=== PATIENT | female | born 1955 | race Caucasian/White ===

== ENCOUNTER → 2016-06-20 | Outpatient (CLI) | payer MEDICAID, OTHER ==
[~2016-06-20] MED LIST: ADVI200C5 PO; MOBI15TA PO; PERC10TA27 PO; VENTAER INH
--- NOTE | 2016-06-20 10:34 | RADRPT ---
EXAM DATE/TIME: 06/20/2016 10:22 [facility] COMPARISON: No previous studies available for comparison. INDICATIONS : Evaluate for communicable disease, pneumonia, and pneumothorax. Bunionectomy right foot MEDICAL HISTORY : None. SURGICAL HISTORY : None. ENCOUNTER: Initial ACUITY: 1 day PAIN SCORE: 0/10 LOCATION: Bilateral chest FINDINGS: PA and lateral views of the chest demonstrate the lungs to be symmetrically aerated without evidence of mass, infiltrate or effusion. The cardiomediastinal contours are unremarkable. Osseous structure s are intact. CONCLUSION: No acute disease. Michael Paul MD on June 20, 2016 at 10:30 Board Certified Radiologist. This report was verified electronically.
[2016-06-20 11:47] LABS: AUTOMATED NEUTROPHIL # 3.9 TH/MM3 (1.8-7.7); BASOPHIL % 0.6 % (0.0-2.0); EOSINOPHIL # 0.4 TH/MM3 (0-0.4); EOSINOPHIL % 6.4 % (0.0-4.0); HEMATOCRIT 41.7 % (35.0-46.0); HEMO FLAGS DIFF FINAL; LYMPH % 19.3 % (9.0-44.0); LYMPHOCYTE # 1.1 TH/MM3 (1.0-4.8); MEAN CELL VOLUME 83.3 FL (80.0-100.0); MEAN CORPUSCULAR HEMOGLOBIN 26.8 PG (27.0-34.0); MEAN CORPUSCULAR HGB CONC 32.2 % (32.0-36.0); MONO % 5.4 % (0.0-8.0); NEUT % 68.3 % (16.0-70.0); PLATELET COUNT 177 TH/MM3 (150-450); RED BLOOD COUNT 5.01 MIL/MM3 (4.00-5.30); RED CELL DISTRIBUTION WIDTH 12.5 % (11.6-17.2); WHITE BLOOD COUNT 5.8 TH/MM3 (4.0-11.0)
[2016-06-20 11:56] LABS: INTERNATIONAL NORMALIZED RATIO 0.9 RATIO; PROTHROMBIN TIME - PATIENT 10.4 SEC (9.8-11.6)
[2016-06-20 12:27] LABS: ALKALINE PHOSPHATASE 129 U/L (45-117); ALT (GPT) 23 U/L (10-53); ANION GAP 8 MEQ/L (5-15); AST (GOT) 20 U/L (15-37); BICARBONATE 29.5 MEQ/L (21.0-32.0); BLOOD UREA NITROGEN 11 MG/DL (7-18); CHLORIDE 104 MEQ/L (98-107); GLOMERULAR FILTRATION RATE 86 ML/MIN (>89); GLUCOSE,FASTING 83 MG/DL (74-99); POTASSIUM 4.4 MEQ/L (3.5-5.1); SODIUM (NA) 141 MEQ/L (136-145); TOTAL BILIRUBIN ADULT 0.3 MG/DL (0.2-1.0)
--- NOTE | 2016-06-20 16:38 | EKG ---
Date Performed: 06/20/2016 Time Performed: 09:50:28 PTAGE: 60 years EKG: Sinus rhythm WITH FIRST DEGREE AV BLOCK ABNORMAL ECG NO PREVIOUS TRACING DOCTOR: Stoney Alberto Interpretating Date/Time 06/20/2016 16:37:22
== END ==
LOC: CPRE 09:31
PROVIDERS: ATTEND Podiatrist Primary Podiatric Medicine
DX: Z01.810 Encounter for preprocedural cardiovascular examination (principal); M20.10 Hallux valgus (acquired), unspecified foot; R94.31 Abnormal electrocardiogram [ECG] [EKG]; Z01.818 Encounter for other preprocedural examination; Z01.812 Encounter for preprocedural laboratory examination
CPT/HCPCS: 36415; 71020; 80053; 85025; 85610; 93005

== ENCOUNTER → 2016-06-24 | Day surgery (SDC) | payer MEDICAID ==
[~2016-06-24] MED LIST changes: +*morphine SULFATE 8 MG/ML PERIprocedure ONLY ONE; +ACETAMINOPHEN 1000 MG/100 ML VIAL IV ONE; +BUPIVACAINE HCL PF 0.5% 30 ML VIAL ONE; +CHLORHEXIDINE GLUCONATE 2 % 1 PACK (2 CLOTHS) TOPICAL PRN; +DEXAMETHASONE SOD PHOS 4 MG/ML VIAL ONE; +DO NOT ADM ANY ANTICOAGULANT DRUGS PRN; +FAMOTIDINE 20 MG/2 ML VIAL ONE; +HYDROmorphone HCL PF 1 MG/ML VIAL IV PRN; +INSULIN HUMAN REGULAR 1,000 UNITS/10 ML VIAL SQ PRN; +LACTATED RINGER'S 1000 ML IV PRN; +LIDOCAINE HCL 1% 50 ML VIAL ONE; +METOCLOPRAMIDE HCL 10 MG/2 ML VIAL ONE; +METOPROLOL TARTRATE 25 MG TAB PO PRN; +MIDAZOLAM HCL 2 MG/2 ML VIAL ONE; +NALOXONE HCL 0.4 MG/ML AMP IV PRN; +ONDANSETRON HCL 4 MG/2 ML VIAL IV PUSH ONE; +POVIDONE IODINE 5% (ANTISEPSIS KIT) 4 APPLICATIONS EACH NARE PRN; +PROPOFOL 200 MG/20 ML AMP IV ONE; +Post-op Orders (for Pharmacy) MISC XX ONE; +SODIUM CHLORID 0.9% 500 ML IV PRN; +SODIUM CHLORIDE 0.9% FLUSH 10 ML FLUSH IV FLUSH PRN; +SODIUM CHLORIDE 0.9% FLUSH 10 ML FLUSH IV FLUSH SCH; +ceFAZolin 2 GM PREMIX 50 ML IV SCH; +oxyCODONE/ACETAMINOPHEN 10 MG/325 MG TAB PO PRN; +oxyCODONE/ACETAMINOPHEN 5 MG/325 MG TAB PO PRN
[2016-06-24 09:52] VITALS: BP 130/69; PULSE 66; RESP 18; TEMP 97.5; O2SAT 97
--- NOTE | 2016-06-24 12:32 | PD.OP ---
Operative Report Date of Surgery: June 24, 2016 Preoperative Diagnosis: (1) HAV (hallux abducto valgus) Right foot Postoperative Diagnosis: (1) HAV (hallux abducto valgus) Right foot Procedure: Crouch bunionectomy right foot Anesthesia: General relation Surgeon: Michael Johnston DPM [employer] Operator(s): None Operation and Findings: Patient is brought to the operating room placed on the operating table in a supine position. Pneumatic ankle cuff was placed around the patient's right ankle after adequate padding. Patient was given general anesthesia. The right foot was prepped and draped in the usual sterile manner. After the appropriate timeout was performed the right foot was elevated above. The table for a period of 3 minutes at which time the pneumatic ankle cuff was inflated to 250 mmHg. The right foot was lowered to the operating table and attention was directed to the dorsal medial aspect of the right foot. At this time a 3 cm linear incision was made on the dorsal aspect of the first MPJ medial to the extensor hallucis longus tendon. The incision was deepened using sharp and blunt dissection freeing up the medial eminence on the head of the first metatarsal. Using an oscillating saw the medial bony eminence was resected in toto. Attention was then directed to the base of the proximal phalanx with a proximal one third was resected with an osteotomy saw. The area was flushed with copious amounts of sterile saline sub-capsular tissue was reapproximated and closed into the space between the remaining proximal phalanx and the head of the first metatarsal. Subcutaneous tissue is closed with 2-0 Vicryl. Skin edges were reapproximated closed with 5-0 Monocryl. The wound incision was dressed with Adaptic 4 x 4's and Ruby and the pneumatic ankle cuff was deflated at the 18 minute gillian. Should be noted that 6 cc of 0.5% Marcaine was infiltrated for postoperative analgesia. Bone was sent to pathology. Estimated blood loss was less than 10 cc. Sponge and instrument count were noted to be correct. Patient tolerated the procedures and anesthesia well and left the OR to PACU in apparent satisfactory condition with all vital signs stable endovascular status intact to the digits of the right foot. Michael Johnston DPM June 24, 2016 12:32
--- NOTE | 2016-06-24 13:27 | RADRPT ---
EXAM DATE/TIME: 06/24/2016 12:42 [facility] COMPARISON: No previous studies available for comparison. INDICATIONS : Post op right foot. MEDICAL HISTORY : None. SURGICAL HISTORY : None. ENCOUNTER: Initial ACUITY: 1 day PAIN SCORE: Non-responsive. LOCATION: Right foot FINDINGS: 3 views of the right foot demonstrate resection of the proximal half of the first digit proximal phal anx. There is adjacent soft tissue swelling and mild soft tissue air. The Lisfranc joint appears inta ct. There is an enthesophyte at the plantar aspect of the calcaneus and there are degenerative change s at the talonavicular joint. CONCLUSION: 1. Imaging findings are consistent with a recent surgical resection of the proximal half of the first digit proximal phalanx. There is adjacent soft tissue swelling and soft tissue air, as expected. 2. There are degenerative changes at the talonavicular joint. Bishop Melendrez MD on June 24, 2016 at 13:23 Board Certified Radiologist. This report was verified electronically.
[2016-06-24 13:46] VITALS: BP 134/77; PULSE 55; RESP 18; TEMP 97.4; O2SAT 95
== END | disposition home or self-care (01) ==
LOC: HSDC 09:12
PROVIDERS: ATTEND Podiatrist Primary Podiatric Medicine
DX: M20.11 Hallux valgus (acquired), right foot (principal); J45.909 Unspecified asthma, uncomplicated; M06.9 Rheumatoid arthritis, unspecified
CPT/HCPCS: 01480; 28292; 73630; 88305; 88311; J0131; J0690; J1100; J2250; J2270; J2405; J2765; J3010; L3260